=== PATIENT | female | born 1990 | race Caucasian/White ===

== ENCOUNTER 2020-02-10 13:49 | Outpatient (CLI) | payer BC ==
--- NOTE | 2020-02-10 14:39 | MMO ---
Bilateral MAMMO Bilat Diag [facility]. CLINICAL HISTORY: Patient is 29 years old and is seen for diagnostic exam. VIEWS: The views performed were: bilateral craniocaudal with tomosynthesis; bilateral mediolateral oblique with tomosynthesis; and bilateral mediolateral with tomosynthesis. FILMS COMPARED: The present examination has been compared to a prior imaging study performed at [facility] on 02/10/2020. This study has been interpreted with the assistance of computer-aided detection. MAMMOGRAM FINDINGS: There are scattered fibroglandular densities. Benign calcifications are noted. No mammographic or sonograhic abnormality is seen at the site of palpable concern in the left breast. There are no suspicious masses, suspicious calcifications, or new areas of architectural distortion. IMPRESSION: THERE IS NO MAMMOGRAPHIC EVIDENCE OF MALIGNANCY. AGE APPROPRIATE SCREENING BASED ON RISK FACTORS IS RECOMMENDED. THE RESULTS OF THIS EXAM WERE SENT TO THE PATIENT. ACR BI-RADS Category 2 - Benign finding MAMMOGRAPHY NOTE: 1. A negative mammogram report should not delay a biopsy if a dominant of clinically suspicious mass is present. 2. Approximately 10% to 15% of breast cancers are not detected by mammography. 3. Adenosis and dense breasts may obscure an underlying neoplasm. Reported by: VELASQUEZ CAMERON MD Electonically Signed: [id number]
--- NOTE | 2020-02-10 14:43 | ULT ---
LIMITED LEFT BREAST ULTRASOUND: 02/10/20 HISTORY: Palpable abnormality at the 3-4 o'clock position on the left breast. FINDINGS: Sonographic evaluation in the region of palpable concern at the 4 o'clock position of the left breast , 3 cm from the nipple demonstrates no abnormality. Comparison is made with the mammograms of today. IMPRESSION: BIRADS 2: Benign Finding(s) Routine age appropriate annual screening mammography based on risk factors (for women over age 40). POS: OFF
== END 2020-02-10 13:50 | disposition home or self-care (01) ==
LOC: BICMAMMO 13:49
PROVIDERS: ATTEND Clinical Nurse Specialist Medical-Surgical
DX: N63.20 Unspecified lump in the left breast, unspecified quadrant (principal)
CPT/HCPCS: 77066; G0279

== ENCOUNTER 2020-03-04 14:40 | Day surgery (SDC) | payer BC, OTHER ==
[2020-03-03 14:28] VITALS: BMI 35.2
--- NOTE | 2020-03-04 05:14 | HP ---
HISTORY OF PRESENT ILLNESS: Snow Mcnair is a 30-year-old female, 1, para 1, who has since January had problems with intermittent epigastric and right upper quadrant pain, back radiation, nausea. She has minimized fatty food intake, but still has symptoms 4 to 5 days a week. She presented to the emergency room recently with severe pain and ultrasound revealed gallstones, normal bile duct caliber, normal liver function test. The patient has ongoing pain, and reports to my office today to discuss cholecystectomy. ALLERGIES: CHERRIES. NO MEDICAL ALLERGIES. SOCIAL HISTORY: Tobacco, 1/3 pack per day or less. Alcohol, rarely. MEDICATIONS: 1. Metformin 500 mg twice a day. 2. Levothyroxine 50 mcg daily. 3. Estarylla daily. PAST SURGICAL HISTORY: . PAST MEDICAL HISTORY: PCO. REVIEW OF SYSTEMS: Noncontributory. FAMILY HISTORY: Noncontributory. PHYSICAL EXAMINATION: VITAL SIGNS: Weight 234 pounds, height 5 feet 7 inches, 37 BMI. Blood pressure 134/77. Temperature 97.5 degrees. HEAD, EARS, EYES, NOSE AND THROAT: Unremarkable. Sclerae nonicteric. SKIN: Nonjaundiced. LUNGS: Clear to auscultation. CARDIAC: Regular rate and rhythm without murmur or gallop. ABDOMEN: Soft and nontender. Mild tenderness in right upper quadrant with deep palpation. EXTREMITIES: Unremarkable. LABORATORY DATA: 02/29/2020, CBC and comprehensive metabolic profile are normal. Glucose 87. Lipase 38. test negative. Ultrasound, gallstones, bile duct 7 mm. ASSESSMENT AND PLAN: Cholecystitis, cholelithiasis. Recommend laparoscopic video cholecystectomy. Risks of infection, bleeding, visceral and biliary injury discussed. Questions answered. She is having so much discomfort so frequently she does not think she can wait until next week. We will plan laparoscopic cholecystectomy tomorrow. Do not need to repeat her labs. We will obtain COVID screening. No symptoms or exposure for COVID except for did have COVID in January and she has 2 swabs since that time that were negative, these were outside the 5-day range. Job ID: [id number]
[~2020-03-04 14:40] MED LIST: Dexamethasone 20 MG/5 ML VIAL ONE; Glycopyrrolate 0.2 MG/ML 5 ML SYRINGE ONE; Lidocaine 1% PF 5 ML VIAL ONE; Ondansetron PF 4 MG/2 ML Vial ONE; PROPOFOL 200 MG/20 ML VIAL ONE; Rocuronium Bromide 10 MG/ML (10ML VIAL) ONE
[2020-03-04] MEDS ORDERED: Ketorolac Tromethamine 30 MG/ML VIAL ONE (15:07)
[2020-03-04] MEDS ORDERED: Scopolamine 1.5 mg/72 hour Patch ONE (15:07)
[2020-03-04] MEDS ORDERED: Acetaminophen 500 MG TAB ONE (15:07)
[2020-03-04] MEDS ORDERED: Midazolam HCl 2 mg/2 ml Vial ONE ×2 (15:50→16:35)
[2020-03-04] MEDS ORDERED: Lidocaine 1% w/Epinephrine 1:100K 20 ML VIAL ONE (16:25)
[2020-03-04] MEDS ORDERED: Iothalamate Meglumine 60% 50 ML VIAL FS ONE (16:25)
[2020-03-04] MEDS ORDERED: Bupivacaine PF 0.5% 30 ML VIAL ONE (16:25)
[2020-03-04] MEDS ORDERED: Fentanyl 100 MCG/2 ML VIAL ONE ×3 (16:35→18:03)
[2020-03-04] MEDS ORDERED: Promethazine HCl 25 MG/ML VIAL ONE ×2 (16:35→18:34)
--- NOTE | 2020-03-05 06:37 | OP ---
DATE OF PROCEDURE: 03/04/2020 PREOPERATIVE DIAGNOSES: Chronic cholecystitis, cholelithiasis. POSTOPERATIVE DIAGNOSES: Chronic cholecystitis, cholelithiasis. PROCEDURE PERFORMED: Laparoscopic video cholecystectomy. ANESTHESIA: General, local of 0.5% Marcaine 30 mL mixed with 1% Xylocaine with epinephrine 20 mL, total volume used. DESCRIPTION OF PROCEDURE: The patient was taken to the operating room, where under general anesthesia, abdomen was prepared with ChloraPrep and draped in routine fashion. Local anesthetic was infiltrated in the skin and subcutaneous tissue about each port site. Infraumbilical incision was made, pneumoperitoneum to 15 mmHg was obtained with a Veress needle, replaced with a 5 port, video laparoscope inserted. Right subxiphoid incision was made and 11 port placed, right subcostal incision was made in midclavicular anterior axillary line and 5 port placed. The area appeared to be normal. Gallbladder was edematous. Fundus was grasped, retracted cephalad, infundibulum grasped, dissected laterally. Cystic artery and duct dissected free. Critical view obtained. Cystic artery and duct doubly clipped proximally, divided and gallbladder dissected free from liver bed, obtaining good hemostasis prior to division of the final peritoneal attachments. Gallbladder and contents removed, submitted to Pathology. She had multiple large stones. Good hemostasis noted. Irrigant and pneumoperitoneum were evacuated. All instruments were removed. All skin incisions were approximated with interrupted subdermal 4-0 Monocryl and Comptche glue applied. Job ID: [id number]
== END 2020-03-04 19:50 | disposition home or self-care (01) ==
LOC: SDC 14:40
PROVIDERS: ATTEND Specialist
PROC: 0FT44ZZ Resection of Gallbladder, Percutaneous Endoscopic Approach (ICD-10-PCS; principal; 2020-03-04)
DX: K80.10 Calculus of gallbladder with chronic cholecystitis without obstruction (principal); E03.9 Hypothyroidism, unspecified; E11.9 Type 2 diabetes mellitus without complications; E66.9 Obesity, unspecified; F17.210 Nicotine dependence, cigarettes, uncomplicated; Z68.35 Body mass index [BMI] 35.0-35.9, adult; Z79.84 Long term (current) use of oral hypoglycemic drugs; Z79.899 Other long term (current) drug therapy; Z91.018 Allergy to other foods; Z91.030 Bee allergy status; Z20.828 Contact with and (suspected) exposure to other viral communicable diseases
CPT/HCPCS: 88304; J1100; J1610; J1885; J1956; J2250; J2405; J2550; J2704; J3010; S0020

== ENCOUNTER 2022-04-19 13:42 | Outpatient (CLI) | payer BC | END 2022-04-19 13:43 | disposition home or self-care (01) | LOC: ULT 13:42 | PROVIDERS: ATTEND Obstetrics & Gynecology | DX: R06.00 Dyspnea, unspecified (principal) | CPT/HCPCS: 93306 ==

== ENCOUNTER 2022-10-15 09:39 | Emergency (ER) | payer BC ==
[~2022-10-15 09:39] MED LIST changes: -Dexamethasone 20 MG/5 ML VIAL ONE; -Glycopyrrolate 0.2 MG/ML 5 ML SYRINGE ONE; +Iopamidol 370 76% 100 ML VIAL ONE; -Lidocaine 1% PF 5 ML VIAL ONE; -Ondansetron PF 4 MG/2 ML Vial ONE; -PROPOFOL 200 MG/20 ML VIAL ONE; -Rocuronium Bromide 10 MG/ML (10ML VIAL) ONE
[2022-10-15 10:29] LABS: #Lymphocytes 1.8 thou/uL (1.20-3.40); #Monocytes 0.8 thou/uL (0.11-0.59); #Neutrophils 7.4 thou/uL (1.40-6.50); %Basophils 0.3 % (0.0-1.0); %Eosinophils 0.1 % (0.0-10.0); %Lymphocytes 17.8 % (21.0-51.0); %Monocytes 7.8 % (0.0-10.0); Hemoglobin 15.5 g/dL (12.0-16.0); Mean Corpuscular HGB CONC 33.8 g/dL (32.0-36.0); Mean Corpuscular Hemoglobin 29.1 pg (27.0-31.0); Mean Corpuscular Volume 85.9 fl (78.0-98.0); Mean Platelet Volume 8.5 fL (7.4-10.4); Platelet Count 320 10x3/uL (130-400); RBC Distribution Width 14.6 % (11.5-14.5); Red Blood Cell (RBC) Count 5.32 mill/uL (4.20-5.40)
[2022-10-15 10:52] LABS: ALT (SGPT) 25 U/L (8-55); AST (SGOT) 18 U/L (5-34); Albumin 4.6 g/dL (3.5-5.0); Alkaline Phosphatase 60 U/L (40-110); Anion Gap 15 mmol/L (10-20); BUN (Urea Nitrogen) 7 mg/dL (7.0-18.7); Bilirubin, Total 0.4 mg/dL (0.2-1.2); Calc. Creatinine Clearance 0 mL/min (70-130); Calcium 9.9 mg/dL (7.8-10.44); Carbon Dioxide 24 mmol/L (22-29); Chloride 99 mmol/L (98-107); Estimated GFR 108; Globulin 2.8 g/dL (2.4-3.5); Glucose 109 mg/dL (70-105); Potassium 3.4 mmol/L (3.5-5.1); Protein, Total 7.4 g/dL (6.0-8.3); Sodium 135 mmol/L (136-145)
[2022-10-15] MEDS ORDERED: Ondansetron ODT 4 MG TAB ONE (11:07)
[2022-10-15] MEDS ORDERED: Lidocaine 2% Viscous Solution 10 ML, Aluminum & Magnesium Hydroxide 20 ML, Donnatal Eli... SSW SCH (11:30)
[2022-10-15 11:44] LABS: Troponin I Less than 0.010 ng/mL (< 0.028)
[2022-10-15 11:50] LABS: Pregnancy Test - Urine (BHCG) Negative (Negative); Pregu Control Background? CLEAR/WHITE (CLR/WHITE); Pregu Control Bar Appear? YES (CONTROL BAR); Specific Gravity 1.017 (1.002-1.036)
[2022-10-15 11:52] LABS: Bilirubin Negative (Negative); Blood, Urine Negative (Negative); Clarity Turbid (Clear); Glucose, Urine (Dipstick) Normal (Negative); Ketone, Urine 40 mg/dL (Negative); Leukocyte 250 Leu/uL (Negative); Nitrite Negative (Negative); Protein, Urine (Dipstick) 20 mg/dL (Neg-Trace); RBC/HPF 0-3 HPF (0-3); Specific Gravity, Urine 1.017 (1.002-1.036); Urobilinogen Normal mg/dL (Less than 2)
[2022-10-15 11:53] LABS: Bacteria/HPF 1+ HPF (None Seen)
[2022-10-15] MEDS ORDERED: Ketorolac Tromethamine 30 MG/ML VIAL ONE (12:12)
[2022-10-15] MEDS ORDERED: Ondansetron PF 4 MG/2 ML Vial ONE (12:12)
== END 2022-10-15 14:30 | disposition home or self-care (01) ==
LOC: ERS 09:39
DX: R10.13 Epigastric pain (principal); R11.2 Nausea with vomiting, unspecified; F17.210 Nicotine dependence, cigarettes, uncomplicated
CPT/HCPCS: 36415; 74177; 80053; 81003; 81025; 82010; 83605; 83690; 84484; 85025; 93005; 94760; 96361; 96374; 96375; J1885; J2405; Q0162; Q9967